=== PATIENT | female | born 1990 | race Caucasian/White ===

== ENCOUNTER 2022-05-16 13:55 | Emergency (ER) | payer MEDICAID ==
[~2022-05-16] VITALS: Ht 162.6 cm; Wt 83.9 kg
[2022-05-16 14:26] VITALS: BP 121/70
--- NOTE | 2022-05-16 15:32 | NUR ---
TORY HODGES AT PT SIDE FOR FURTHER EVAL
[2022-05-16] MEDS ORDERED: ONDA-188 SL (15:43)
[2022-05-16 16:25] VITALS: BP 121/70
--- NOTE | 2022-05-16 16:53 | NUR ---
Patient discharged with v/s stable. Written and verbal after care instructions given and explained. Patient alert, oriented and verbalized understanding of instructions. Ambulatory with steady gait. All questions addressed prior to discharge. ID band removed. Patient advised to follow up with PMD. Rx of ZOFRAN ODT given. Patient educated on indication of medication including possible reaction and side effects. Opportunity to ask questions provided and answered.
== END 2022-05-16 16:53 | disposition home or self-care (01) ==
LOC: MED 13:55
DX: U07.1 COVID-19 (principal); R11.2 Nausea with vomiting, unspecified; Z79.899 Other long term (current) drug therapy
CPT/HCPCS: 99283

== ENCOUNTER 2022-06-27 22:09 | Emergency (ER) | payer MEDICAID ==
[~2022-06-27] VITALS: Ht 162.6 cm; Wt 83.9 kg
[~2022-06-27 22:09] MED LIST: ONDA-188 SL
[2022-06-27 22:37] VITALS: BP 125/80
--- NOTE | 2022-06-27 23:15 | NUR ---
Patient ambulated to bed 8.
--- NOTE | 2022-06-27 23:50 | NUR ---
32/F BIB SELF C/C VAG BLEEDING PAIN [id number] S/P IUD PLACEMENT. PER PATIENT IUD PLACED IN NOVEMBER AND HAS BEEN HAVING PAIN AND ANBORMAL BLEEDING. IUD HAS CAME OUT AND PATIENT HAS BEEN BLEEDING FOR THE PAST MONTH WITH LARGE CLOTHS. PER PATIENT SHE SOAKED ABOUT 5-6 PADS/DAY. DENIES CP/SOB/N/V. PATIENT RR APPEAR TO BE EVEN AND UNLABORED. DOESNT APPEAR TO BE IN DISTRESS. PATIENT PLACED IN GOWN AND BED. BED LOW AND LOCKED. SIDE RAILS UP FOR SAFETY. ALL NEEDS MET. PMHX DENIES NKA
--- NOTE | 2022-06-27 23:53 | NUR ---
PATIENT AMBULATED TO RR
[2022-06-28 00:40] LABS: APPEARANCE,URINE SL CLOUDY (CLEAR); BILIRUBIN,URINE 1+ (NEGATIVE); BLOOD, URINE 3+ (NEGATIVE); COLOR,URINE ORANGE (YELLOW); LEUKOCYTE ESTERASE ,URINE NEGATIVE (NEGATIVE); NITRITE, URINE NEGATIVE (NEGATIVE); PH,URINE 6.5 (5.0-9.0); UGLUCOSE NEGATIVE (NEGATIVE)
[2022-06-28 00:58] LABS: RBC,URINE >100 /HPF (0-5); WBC,URINE 80-100 /HPF (0-5); YEAST,URINE None Seen /HPF (None Seen)
--- NOTE | 2022-06-28 01:11 | NUR ---
Dr. Denton examining patient.
[2022-06-28] MEDS ORDERED: KETOROLAC 30 MG/ML VIAL IM ONE (01:20)
--- NOTE | 2022-06-28 02:00 | NUR ---
Female Uniform Cap Operator accompanied female patient for Pelvic Exam.
--- NOTE | 2022-06-28 02:49 | NUR ---
Ultrasound at bedside.
[2022-06-28] MEDS ORDERED: cephALEXin 500 MG CAP PO ONE (03:45)
[2022-06-28] MEDS ORDERED: CEPH-588 PO (03:48)
[2022-06-28] MEDS ORDERED: IBUP-2213 PO (03:48)
[2022-06-28 04:05] VITALS: BP 130/70
--- NOTE | 2022-06-28 04:05 | NUR ---
Patient discharged with v/s stable. Written and verbal after care instructions given UTI/ VAG BLEEDING and explained. Patient alert, oriented and verbalized understanding of instructions. Ambulatory with steady gait. ID band removed. Patient advised to follow up with PMD. Rx of IBUPROFEN AND KEFLEX given.
--- NOTE | 2022-06-28 04:06 | NUR ---
The patient's care was reviewed and supervised by Gia Bravo RN.
== END 2022-06-28 04:05 | disposition home or self-care (01) ==
LOC: MED 22:09
DX: T83.32XA Displacement of intrauterine contraceptive device, initial encounter (principal); N93.9 Abnormal uterine and vaginal bleeding, unspecified; N39.0 Urinary tract infection, site not specified; R03.0 Elevated blood-pressure reading, without diagnosis of hypertension; Z79.899 Other long term (current) drug therapy; Z79.1 Long term (current) use of non-steroidal anti-inflammatories (NSAID); Z79.2 Long term (current) use of antibiotics
CPT/HCPCS: 76856; 81001; 81025; 87086; 87491; 96372; 99284; J1885; Q0092